=== PATIENT | female | born 2000 | race Caucasian/White ===

== ENCOUNTER 2022-12-19 01:59 | Emergency (ER) | payer MEDICAID ==
--- NOTE | 2022-12-19 02:17 | ERPHSYRPT ---
- History of Present Illness Time Seen by Provider: 12/19/22 02:16 Source: patient Exam Limitations: no limitations Physician History: This is a 22-year-old female who underwent bilateral tonsillectomy on 12/12/2022. Yesterday she noticed some bright red blood that she was spitting up but it was scant amount and seem to only be at worst intermittent. Patient then went to bed and at 1 AM she suddenly spit up a large clot followed by several smaller clots. She could feel clots present on the right side of her postoperative site. Patient presents to the emergency department with stable initial vital signs (not hypotensive and only mildly tachycardic). At the time of my initial examination, there is no active bleeding present but there is a large clot in the right post operative tonsillectomy site Severity: mild (To moderate) Associated Symptoms: denies symptoms Allergies/Adverse Reactions: No Known Drug Allergies Allergy (Unverified 12/19/22 02:05) Home Medications: Control 1 tab PO DAILY 12/19/22 [History] Hydrocodone/Acetaminophen [Hydrocodone-Acetamn 7.5-325/15] 15 ml PO Q6H PRN PRN 12/19/22 [History] Metformin HCl 500 mg [Glucophage 500 MG] 500 mg PO BID 12/19/22 [History] Travel Risk - International Travel Have you traveled outside of the country in past 3 weeks: No - Coronavirus Screening Are you exhibiting any of the following symptoms?: No Close contact with a COVID-19 positive Pt in past 14-21 Days: No - Review of Systems Constitutional: No Symptoms Eyes: No Symptoms Ears, Nose, & Throat: No Symptoms, Other (Postoperative tonsillectomy blood clot) Respiratory: No Symptoms Cardiac: No Symptoms Abdominal/Gastrointestinal: No Symptoms Genitourinary Symptoms: No Symptoms Musculoskeletal: No Symptoms Skin: No Symptoms Neurological: No Symptoms Psychological: No Symptoms Endocrine: No Symptoms Hematologic/Lymphatic: No Symptoms Immunological/Allergic: No Symptoms All Other Systems: Reviewed and Negative - Past Medical History Neurological History: No Pertinent History Cardiac History: No Pertinent History Respiratory History: No Pertinent History Endocrine Medical History: No Pertinent History Musculoskeletal History: No Pertinent History GI Medical History: No Pertinent History History: No Pertinent History Psycho-Social History: No Pertinent History Female Reproductive Disorders: No Pertinent History - Past Surgical History Past Surgical History: Yes - Nursing Vital Signs Nursing Vital Signs: Initial Vital Signs Temperature 96.6 F 12/19/22 02:07 Pulse Rate 122 H 12/19/22 02:07 Respiratory Rate 16 12/19/22 02:07 Blood Pressure 150/106 12/19/22 02:07 O2 Sat by Pulse Oximetry 98 12/19/22 02:07 Pain Scale Pain Intensity 6 - Physical Exam General Appearance: no apparent distress, alert, anxiety Eye Exam: PERRL/EOMI Ears, Nose, Throat Exam: other (Post operative tonsillectomy right side with large blood clot present. Left side postoperative tonsillectomy site appears to be healing well with fibrinous exudate present. No active bleeding at either site at this point in time) Neck Exam: normal inspection, non-tender, supple, full range of motion Respiratory Exam: normal breath sounds, lungs clear, airway intact, No chest tenderness, No respiratory distress Cardiovascular Exam: tachycardia Gastrointestinal/Abdomen Exam: No tenderness Rectal Exam: not done Back Exam: normal inspection, normal range of motion, No CVA tenderness, No vertebral tenderness Extremity Exam: normal inspection, normal range of motion, pelvis stable Neurologic Exam: alert, oriented x 3, cooperative, fuel handler II-XII nml as tested, normal mood/affect, nml cerebellar function, nml station & gait, sensation nml Skin Exam: normal color, warm, dry Lymphatic Exam: No adenopathy SpO2 Interpretation: normal O2 Delivery: Room Air - Course Nursing assessment & vital signs reviewed: Yes Ordered Tests: Active Orders 24 hr Category Date Time Status IV Insertion STAT Care 12/19/22 02:19 Active CBC W DIFF Stat Lab 12/19/22 02:40 Completed CMP Stat Lab 12/19/22 02:40 Completed HCG QUALITATIVE,SERUM Stat Lab 12/19/22 02:40 Completed Lab/Rad Data: Laboratory Result Diagrams 12/19/22 02:40 12/19/22 02:40 Laboratory Results 12/19/22 12/19/22 12/19/22 Range/Units 02:40 02:40 02:40 WBC 13.2 H (4.0-10.5) x10^3/uL RBC 5.57 H (4.1-5.4) x10^6/uL Hgb 14.9 (12.0-16.0) g/dL Hct 42.7 (35-47) % MCV 76.7 L (78-100) fL MCH 26.8 (26-32) pg MCHC 34.9 (32-36) g/dL RDW 11.9 (11.5-14.0) % Plt Count 278 (150-450) x10^3/uL MPV 8.7 (7.5-11.0) fL Gran % 68.7 H (36.0-66.0) % Immature Gran % (Auto) 0.5 H (0.00-0.4) % Nucleat RBC Rel Count 0.0 (0.00-0.1) % Eos # (Auto) 0.15 (0-0.5) x10^3/uL Immature Gran # (Auto) 0.06 H (0.00-0.03) x10^3u/L Absolute Lymphs (auto) 2.90 (1.0-4.6) x10^3/uL Absolute Monos (auto) 0.95 (0.0-1.3) x10^3/uL Absolute Nucleated RBC 0.00 (0.00-0.01) x10^3u/L Lymphocytes % 22.0 L (24.0-44.0) % Monocytes % 7.2 (0.0-12.0) % Eosinophils % 1.1 (0.00-5.0) % Basophils % 0.5 (0.0-0.4) % Absolute Granulocytes 9.05 H (1.4-6.9) x10^3/uL Basophils # 0.07 (0-0.4) x10^3/uL Sodium 136 L (137-145) mmol/L Potassium 3.3 L (3.5-5.1) mmol/L Chloride 94 L (98-107) mmol/L Carbon Dioxide 26 (22-30) mmol/L Anion Gap 19.3 H (5-15) MEQ/L BUN 16 (7-17) mg/dL Creatinine 0.67 (0.52-1.04) mg/dL Estimated GFR > 60.0 ML/MIN Glucose 106 (74-106) mg/dL Calcium 9.5 (8.4-10.2) mg/dL Total Bilirubin 1.20 (0.2-1.3) mg/dL AST 22 (14-36) U/L ALT 31 (0-35) U/L Alkaline Phosphatase 105 (38-126) U/L Serum Total Protein 8.6 H (6.3-8.2) g/dL Albumin 4.9 (3.5-5.0) g/dL Serum , Qual NEGATIVE (Negative) - Progress Progress: unchanged Progress Note: 12/19/22 02:59 This patient has a medical issue that is low to moderate complexity. This is based on the patient's history and physical exam findings. She has an issue that may suddenly change, that is, increased bleeding postoperative site. The above prompted me to order blood work and to place an intravenous line. I revie wed the labs and discussed this with the patient and the patient's family. My plan is to discuss the findings on physical exam and laboratory data with the patient's ENT surgeon Dr. Paris. It is my understanding, per patient and patient's mother, that this patient may need to be transferred to [place] area where the ENT surgeon will be. I am awaiting a callback from Dr. Paris. 12/19/22 03:51 Medical decision making: After the work-up was complete, I called Dr. Valencia Paris service at [facility] on [address] In [place]. She is not on-call. However, I was able to speak with Dr. Shearer, ENT specialist covering for her. He told me the plan for her is to not remove the clot, transfer the patient by private vehicle to [address] in [place] emergency department where the patient will see the ENT fellow. [address] Shearer will be contacting the emergency department there and the fellow to notify them that this patient will be arriving by private vehicle. 12/19/22 03:55 Patient and patient's mother state that they are comfortable with transferring the patient to [address] via private vehicle. I believe she is stable and safe enough to transfer in this manner as well. Counseled pt/family regarding: lab results, diagnosis, need for follow-up Medical Desision Making - Independent Historian Additional History obtained from: Mother - External Record(s) Reviewed Records reviewed as a part of evaluation & management: Discharge Summary (From 12/12/2022 surgical discharge summary) - Discussion of managment Reviewed:: Test results Agreed on:: Treatment plan, need for follow-up - Diagnostic Testing Diagnostic test were ordered, analyzed, and reviewed by me: Yes - Risk of complications The pt has a mod risk of morbidity or mortality based on: Need for minor surgical intervention in patient with know risk factors - Departure Departure Disposition: Transfer Clinical Impression: Postoperative bleeding from mouth Condition: Stable Critical Care Time: No
[2022-12-19 02:47] LABS: Absolute Neutrophil Ct (ANC) 9.05 x10^3/uL (1.4-6.9); BASOPHIL % 0.5 % (0.0-0.4); Basophil (Absolute #) 0.07 x10^3/uL (0-0.4); Eosinophil % 1.1 % (0.00-5.0); Eosinophil (Absolute #) 0.15 x10^3/uL (0-0.5); Hematocrit 42.7 % (35-47); Hemoglobin 14.9 g/dL (12.0-16.0); IMMATURE GRAN # 0.06 x10^3u/L (0.00-0.03); IMMATURE GRAN % 0.5 % (0.00-0.4); Mean Cell Volume 76.7 fL (78-100); Mean Corpuscular Hemoglobin 26.8 pg (26-32); Mean Corpuscular Hgb Concent. 34.9 g/dL (32-36); Mean Platelet Volume 8.7 fL (7.5-11.0); Monocyte (Absolute #) 0.95 x10^3/uL (0.0-1.3); Monocytes % 7.2 % (0.0-12.0); Neutrophil % 68.7 % (36.0-66.0); Platelet Count 278 x10^3/uL (150-450); Red Blood Count 5.57 x10^6/uL (4.1-5.4); Red Cell Distribution Width 11.9 % (11.5-14.0); White Blood Count 13.2 x10^3/uL (4.0-10.5)
[2022-12-19 03:04] LABS: ALBUMIN 4.9 g/dL (3.5-5.0); ALKALINE PHOSPHATASE 105 U/L (38-126); ANION GAP 19.3 MEQ/L (5-15); BLOOD UREA NITROGEN 16 mg/dL (7-17); CHLORIDE 94 mmol/L (98-107); Calcium 9.5 mg/dL (8.4-10.2); Carbon Dioxide 26 mmol/L (22-30); Creatinine 1 0.67 mg/dL (0.52-1.04); EST GLOMERULAR FILTRATION RATE > 60.0 ML/MIN; Glucose 106 mg/dL (74-106); Potassium 3.3 mmol/L (3.5-5.1); SGOT/AST 22 U/L (14-36); SGPT/ALT 31 U/L (0-35); SODIUM 136 mmol/L (137-145); Total Protein 8.6 g/dL (6.3-8.2)
[2022-12-19 04:19] VITALS: BP 137/94
[2022-12-19 04:41] VITALS: PULSE 100; O2SAT 96
== END 2022-12-19 04:30 | disposition short-term general hospital (02) ==
LOC: ED 01:59
DX: K91.840 Postprocedural hemorrhage of a digestive system organ or structure following a digestive system procedure (principal); Z79.891 Long term (current) use of opiate analgesic; Z79.84 Long term (current) use of oral hypoglycemic drugs
CPT/HCPCS: 36000; 36415; 80053; 84703; 85025; 99284